=== PATIENT | female | born 1940 | race Caucasian/White ===

== ENCOUNTER 2017-05-06 13:01 | Outpatient (CLI) | payer MEDICARE, BC ==
--- NOTE | 2017-05-06 15:22 | RAD ---
PA AND LATERAL VIEWS OF CHEST: Date: 05/06/17 HISTORY: Dyspnea. FINDINGS: Comparison made with exam of 04/05/17. The heart size is enlarged. The aorta is tortuous. Chronic changes are again seen. No lobar consolid ation, pneumothorax, or pleural effusions are identified. There are degenerative changes in the spin e. IMPRESSION: No acute process. POS: [facility]
== END 2017-05-06 13:02 | disposition home or self-care (01) ==
LOC: RAD 13:01
PROVIDERS: ATTEND Internal Medicine Pulmonary Disease
DX: R06.00 Dyspnea, unspecified (principal)
CPT/HCPCS: 71020

== ENCOUNTER 2017-06-28 10:58 | Outpatient (CLI) | payer MEDICARE, BC | END 2017-06-28 10:59 | disposition home or self-care (01) | LOC: BICRAD 10:58 | PROVIDERS: ATTEND Internal Medicine Rheumatology | DX: M25.551 Pain in right hip (principal); M16.11 Unilateral primary osteoarthritis, right hip ==

== ENCOUNTER 2017-08-15 11:28 | Outpatient (CLI) | payer MEDICARE, OTHER ==
--- NOTE | 2017-08-15 13:20 | RAD ---
TWO VIEWS OF THE CHEST: COMPARISON: 05/06/17. HISTORY: Dyspnea. FINDINGS: Two views of the chest show an enlarged cardiomediastinal silhouette with atherosclerotic calcificati ons in the aorta. There is no evidence of consolidation, mass, or pleural effusion. Degenerative ch anges are seen in the spine. IMPRESSION: Cardiomegaly without evidence of acute cardiopulmonary disease. POS: [facility]
== END 2017-08-15 11:29 | disposition home or self-care (01) ==
LOC: RAD 11:28
PROVIDERS: ATTEND Internal Medicine Pulmonary Disease
DX: R06.00 Dyspnea, unspecified (principal); I51.7 Cardiomegaly
CPT/HCPCS: 71046

== ENCOUNTER 2017-09-14 11:18 | Outpatient (CLI) | payer MEDICARE, OTHER ==
--- NOTE | 2017-09-14 13:23 | RAD ---
ABDOMEN TWO VIEWS: HISTORY: R10.9 (abdominal pain). COMPARISON: None. FINDINGS: On the upright view, the hemidiaphragms are not well seen; therefore, free air evaluation is limited. No dilated air-filled loops of large or small bowel. Moderate stool burden throughout the ascending colon. There are phleboliths in the pelvis. Mild dextroscoliosis. IMPRESSION: 1. No acute intraabdominal abnormality. 2. Moderate stool burden in the ascending colon, suggesting constipation. POS: [facility]
== END 2017-09-14 11:19 | disposition home or self-care (01) ==
LOC: TBSIIMAG 11:18
PROVIDERS: ATTEND Psychiatry & Neurology Neurology
DX: R10.9 Unspecified abdominal pain (principal)
CPT/HCPCS: 74019

== ENCOUNTER 2018-12-14 13:00 | Outpatient (CLI) | payer MEDICARE, OTHER ==
[~2018-12-14 13:00] MED LIST: Gadobenate Dimeglumine 529 MG/1 ML (20ML VIAL) ONE
--- NOTE | 2018-12-14 14:20 | RAD ---
Exam: 4views of the lumbosacral spine HISTORY: Lumbar stenosis with neurogenic claudication COMPARISON: Lumbar spinal radiograph dated February 06, 2016 FINDINGS: There are five lumbar type vertebra. No acute fracture or subluxation. There is worsening disc degenerative disease at L3-4 and L4-5. There is a prominent Modic endplate de generative change at L3-4. There is slight degenerative dextroscoliosis at L3-4. There is slight retrolisthesis of L3 on L4 that appears slightly more prominent than on the prior exam. Mild compress ion abnormality at T12 is stable. Prominent vascular calcifications are again noted. IMPRESSION: 1. Moderate to severe worsening lumbar spondylosis
--- NOTE | 2018-12-14 14:45 | MRI ---
MR the lumbar spine without contrast INDICATION: Lumbar stenosis with claudication COMPARISON: MR the lumbar spine with and without dated February 14, 2017 TECHNIQUE: Multiplanar multisequence MR images were obtained of lumbar spine without IV contrast. The examination was ordered as a with and without study; however, the patient declined the post contrast imaging evaluation. FINDINGS: Bone marrow: Bone marrow signal intensity appears within normal limits. There is a stable chronic sup erior end plate compression abnormality of T12. Distal spinal cord and conus: Normal. The conus seen to terminate at L1. Visualized retroperitoneum and paraspinal soft tissues: Normal. Vertebral levels: L5-S1: There is a broad-based disc bulge with moderate facet joint degenerative changes inducing mode rate bilateral neural foraminal narrowing, left greater than right. This is stable to the prior exam.. L4-5: There is stable broad-based bulge with facet hypertrophy inducing stable moderate central canal narrowing with severe bilateral neural foraminal narrowing. The degree of neural foraminal narrowing bilaterally has progressed from the prior exam. L3-4: There is a broad-based disc bulge with ligamentum flavum hypertrophy and facet hypertrophy cristian cing stable moderate to severe central canal narrowing with mild right and severe left neural foraminal narrowing. This is stable to the prior exam. L2-3: There is a broad-based bulge with facet hypertrophy inducing mild central canal narrowing with mild bilateral neural foraminal narrowing. L1-L2: There is mild facet joint degenerative change but no appreciable central canal or neural earle inal narrowing. T12-L1: No appreciable central canal or neuroforaminal narrowing. IMPRESSION: 1. Worsening bilateral neural foraminal narrowing at L4-5. 2. Stable central canal narrowing seen at L2-3 through L4-5. There is moderate central canal narrowin g at L4-5 and moderate to severe central canal narrowing at L3-4. 3. Stable neural foraminal narrowing seen at L2-3, L3-4 and L5-S1.
== END 2018-12-14 13:01 | disposition home or self-care (01) ==
LOC: BICMRI 13:00
PROVIDERS: ATTEND Anesthesiology Pain Medicine
DX: M48.062 Spinal stenosis, lumbar region with neurogenic claudication (principal); M47.816 Spondylosis without myelopathy or radiculopathy, lumbar region; M48.07 Spinal stenosis, lumbosacral region
CPT/HCPCS: 72110; 72158; A9577

== ENCOUNTER 2019-03-26 09:32 | Outpatient (CLI) | payer MEDICARE, OTHER ==
[2019-03-26 13:23] LABS: #Basophils 0.1 thou/uL (0.0-0.2); #Eosinphils 0.2 thou/uL (0.0-0.7); #Lymphocytes 3.5 thou/uL (1.20-3.40); #Monocytes 1.1 thou/uL (0.11-0.59); #Neutrophils 7.6 thou/uL (1.40-6.50); %Basophils 0.8 % (0.0-1.0); %Eosinophils 1.8 % (0.0-10.0); %Lymphocytes 28.3 % (21.0-51.0); %Monocytes 8.7 % (0.0-10.0); %Neutrophils 60.5 % (42.0-75.0); Hemoglobin 11.8 g/dL (12.0-16.0); Mean Corpuscular HGB CONC 33.6 g/dL (32.0-36.0); Mean Corpuscular Hemoglobin 28.7 pg (27.0-31.0); Mean Corpuscular Volume 85.3 fL (78.0-98.0); Mean Platelet Volume 9.4 fL (7.4-10.4); Platelet Count 257 thou/uL (130-400); RBC Distribution Width 12.9 % (11.5-14.5); Red Blood Cell (RBC) Count 4.11 mill/uL (4.20-5.40); White Blood Cell (WBC) Count 12.5 thou/uL (4.8-10.8)
[2019-03-26 13:43] LABS: ALT (SGPT) 16 U/L (8-55); AST (SGOT) 18 U/L (5-34); Albumin 4.3 g/dL (3.4-4.8); Alkaline Phosphatase 165 U/L (40-150); Anion Gap 16 mmol/L (10-20); BUN (Urea Nitrogen) 53 mg/dL (9.8-20.1); Bilirubin, Total 0.4 mg/dL (0.2-1.2); Calc. Creatinine Clearance 0 mL/min (70-130); Calcium 10.3 mg/dL (7.8-10.44); Carbon Dioxide 28 mmol/L (23-31); Chloride 95 mmol/L (98-107); Estimated GFR-MDRD 26; Globulin 3.2 g/dL (2.4-3.5); Glucose 128 mg/dL (83-110); Potassium 4.7 mmol/L (3.5-5.1); Protein, Total 7.5 g/dL (6.0-8.3); Sodium 134 mmol/L (136-145)
== END 2019-03-26 09:33 | disposition home or self-care (01) ==
LOC: LABBT 09:32
PROVIDERS: ATTEND Internal Medicine Cardiovascular Disease
DX: Z01.812 Encounter for preprocedural laboratory examination (principal)
CPT/HCPCS: 80053; 85025

== ENCOUNTER 2019-03-28 05:53 | Day surgery (SDC) | payer MEDICARE, OTHER ==
[2019-03-26 12:18] VITALS: BMI 33.5
[2019-03-28] MEDS ORDERED: Lidocaine 1% (PF) 30 ML VIAL ONE (06:56)
[2019-03-28] MEDS ORDERED: Fentanyl 100 MCG/2 ML VIAL ONE (08:25)
[2019-03-28] MEDS ORDERED: Metoprolol Tartrate 5 MG/5 ML VIAL ONE ×3 (08:25→09:07)
[2019-03-28] MEDS ORDERED: Midazolam HCl 2 mg/2 ml Vial ONE (08:25)
[2019-03-28] MEDS ORDERED: Nitroglycerin 2% Ointment 1 INCH/1 GM Packet ONE (08:35)
[2019-03-28] MEDS ORDERED: Nitroglycerin 4.9 GM Bottle ONE (08:35)
[2019-03-28] MEDS ORDERED: Nitroglycerin 100MG/250ML BOT 250 ML ONE (09:07)
[2019-03-28] MEDS ORDERED: Iopamidol 370 76% 100 ML VIAL ONE (10:42)
--- NOTE | 2019-03-29 04:06 | DIS ---
DATE OF ADMISSION: 03/28/2019 DATE OF DISCHARGE: 03/28/2019 FINAL DIAGNOSES: 1. Coronary artery disease. 2. Cardiomyopathy. 3. Left bundle-branch block. HOSPITAL COURSE: Ms. Colbert underwent cardiac catheterization today. She is found to have diffusely diseased LAD in the distal segment. A very small vessel, less than 2 mm. Disease extends back to the origin of a very large first diagonal. Intervention would not be feasible or advisable on the patient. I do not think it is the source of her cardiomyopathy. By any means, as I was ready to discharge her, she informed that she had fallen a couple of weeks ago. She said she remembers falling and hitting the ground. Her thinks she may have hit her head though. She said she was "dizzy," before that, but she is dizzy all day. It is possible this is arrhythmia, but it is difficult to be certain. The patient wishes to be released home. She is going to see Dr. Gómez in the office for further evaluation, consideration for biventricular pacemaker defibrillator. The patient's QRS duration is 0.15. Patient should be treated medically from a coronary artery standpoint. The patient was hypertensive and tachycardic today. Therefore, we may need to increase her beta blockers as an outpatient, especially after the device is placed. Ejection fraction on the echocardiogram is 25% to 30%. I called it 40%, but it is an PALMA view which does not show the septum and there is very definite paradoxical septal motion due to the left bundle-branch block seen in the STEVAN views and also seen on echo. True ejection fraction is 25% to 30%. It was persistently low despite beta blockers and INDU inhibitors for over 3 months. Job ID: [id number]
== END 2019-03-28 13:44 | disposition home or self-care (01) ==
LOC: CCL 05:53
PROVIDERS: ATTEND Internal Medicine Cardiovascular Disease
PROC: 4A023N7 Measurement of Cardiac Sampling and Pressure, Left Heart, Percutaneous Approach (ICD-10-PCS; principal; 2019-03-28)
PROC: B2051ZZ Plain Radiography of Left Heart using Low Osmolar Contrast (ICD-10-PCS; 2019-03-28)
DX: I25.10 Atherosclerotic heart disease of native coronary artery without angina pectoris (principal); I11.0 Hypertensive heart disease with heart failure; I50.42 Chronic combined systolic (congestive) and diastolic (congestive) heart failure; E11.9 Type 2 diabetes mellitus without complications; E78.2 Mixed hyperlipidemia; I44.7 Left bundle-branch block, unspecified; E66.9 Obesity, unspecified; E78.00 Pure hypercholesterolemia, unspecified; Z68.33 Body mass index [BMI] 33.0-33.9, adult; Z88.0 Allergy status to penicillin; Z88.1 Allergy status to other antibiotic agents; Z88.2 Allergy status to sulfonamides; Z91.041 Radiographic dye allergy status; Z79.4 Long term (current) use of insulin; Z79.82 Long term (current) use of aspirin; Z79.899 Other long term (current) drug therapy
CPT/HCPCS: 36416; 76942; 93458; 99152; C1769; J1644; J2001; J2250; J3010; Q9967

== ENCOUNTER 2019-12-06 12:02 | Inpatient (IN) | payer MEDICARE, OTHER ==
[~2019-12-06 12:02] MED LIST changes: +Dextrose 50% Abboject 50 ML SYRINGE ONE; -Gadobenate Dimeglumine 529 MG/1 ML (20ML VIAL) ONE
[2019-12-06] MEDS ORDERED: Dextrose 50% Abboject 50 ML SYRINGE ONE (12:06)
--- NOTE | 2019-12-06 12:37 | RAD ---
PORTABLE SUPINE CHEST: Date: 12/06/2019 INDICATION: Pacemaker malfunction. COMPARISON: 08/15/2017. FINDINGS: Dual lead pacemaker device has been placed since the prior study with AICD leads noted overlying the right atrium and right ventricle. Mild cardiomegaly and mild vascular engorgement. No focal infiltrate or evidence of significant edema . IMPRESSION: Mild cardiomegaly with mild vascular engorgement. Pacemaker leads appear adequately positioned on por table exam. POS: [facility]
[2019-12-06 13:01] LABS: #Basophils 0.1 thou/uL (0.0-0.2); #Eosinphils 0.2 thou/uL (0.0-0.7); #Lymphocytes 2.8 thou/uL (1.20-3.40); #Monocytes 1.5 thou/uL (0.11-0.59); #Neutrophils 11.4 thou/uL (1.40-6.50); %Basophils 0.6 % (0.0-1.0); %Eosinophils 1.2 % (0.0-10.0); %Lymphocytes 17.7 % (21.0-51.0); %Monocytes 9.2 % (0.0-10.0); %Neutrophils 71.3 % (42.0-75.0); Hemoglobin 12.1 g/dL (12.0-16.0); Mean Corpuscular HGB CONC 30.6 g/dL (32.0-36.0); Mean Corpuscular Hemoglobin 26.8 pg (27.0-31.0); Mean Corpuscular Volume 87.4 fL (78.0-98.0); Mean Platelet Volume 9.3 fL (7.4-10.4); Platelet Count 268 thou/uL (130-400); RBC Distribution Width 12.7 % (11.5-14.5); Red Blood Cell (RBC) Count 4.52 mill/uL (4.20-5.40)
[2019-12-06] MEDS ORDERED: Acetaminophen 500 MG TAB ONE (13:15)
[2019-12-06 13:22] LABS: ALT (SGPT) 14 U/L (8-55); AST (SGOT) 24 U/L (5-34); Albumin 4.2 g/dL (3.4-4.8); Alkaline Phosphatase 168 U/L (40-110); Anion Gap 12 mmol/L (10-20); BUN (Urea Nitrogen) 29 mg/dL (9.8-20.1); Bilirubin, Total 0.6 mg/dL (0.2-1.2); Calc. Creatinine Clearance 0 mL/min (70-130); Calcium 9.6 mg/dL (7.8-10.44); Carbon Dioxide 27 mmol/L (23-31); Chloride 102 mmol/L (98-107); Estimated GFR-MDRD 37; Globulin 3.2 g/dL (2.4-3.5); Glucose 144 mg/dL (83-110); Lipase 31 U/L (8-78); Magnesium 1.9 mg/dL (1.6-2.6); Potassium 3.9 mmol/L (3.5-5.1); Protein, Total 7.4 g/dL (6.0-8.3); Sodium 137 mmol/L (136-145)
[2019-12-06 13:44] LABS: CKMB 3.3 ng/mL (0-6.6)
[2019-12-06 13:59] LABS: Bilirubin Negative (Negative); Blood, Urine Negative (Negative); Clarity Clear (Clear); Glucose, Urine (Dipstick) 70 mg/dL (Negative); Leukocyte Negative Leu/uL (Negative); Nitrite Negative (Negative); Protein, Urine (Dipstick) Negative (Neg-Trace); Urobilinogen Normal mg/dL (Less than 2)
[2019-12-06] MEDS ORDERED: Acetaminophen 325 MG TAB PO PRN (15:05)
[2019-12-06] MEDS ORDERED: Senokot S 8.6-50 MG TAB PO PRN (15:05)
[2019-12-06] MEDS ORDERED: Dextrose 5% in Water 1,000 ML IV PRN (15:09)
[2019-12-06] MEDS ORDERED: HumaLOG 300 UNITS/3 ML VIAL SC PRN (15:09)
[2019-12-06] MEDS ORDERED: Dextrose 50% Abboject 50 ML SYRINGE SLOW IVP PRN (15:09)
[2019-12-06] MEDS ORDERED: Non-Formulary Item 1 EACH (Adalimumab [Humira Pen] 40 MG) SQ SCH (15:15)
--- NOTE | 2019-12-06 17:16 | HP ---
CHIEF COMPLAINT: Hypoglycemia. HISTORY OF PRESENT ILLNESS: An 79-year-old female with a history of type 2 diabetes mellitus, hypertension, coronary artery disease, cardiomyopathy, and left bundle-branch block, presented with hypoglycemic episodes. 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 She was found to be unresponsive and when EMS checked, her blood glucose was less than 35. It appears she had some myoclonic jerks. She was brought in to the [facility]. When they were about to intubate her, it appears that she became alert. Her blood glucose improved to 178 after intervention. She will be admitted for further management. The patient is not able to give me more detailed information. Her spouse is not at bedside. So, it is very unclear how much insulin she took. She is on lantus and victoza. She is also on prednisone, but she is not taking when I asked. PAST MEDICAL HISTORY: She had a pacemaker placement last year for sinus arrhythmia. REVIEW OF SYSTEMS: Complete review of systems not obtainable directly from the patient. ALLERGIES: SHE IS ALLERGIC TO IODINE, PENICILLIN, AND SULFA. PAST MEDICAL HISTORY: 1. Coronary artery disease. 2. Cardiomyopathy. 3. Left bundle-branch block. 4. Type 2 diabetes mellitus. 5. Hypertension. 6. Dementia. 7. GERD. 8. Restless legs syndrome. 9. History of thrombocytopenia. MEDICATIONS: She is on several home medications and I am not sure all are corrected, it has to be updated, aspirin 81 mg daily, Humira 40 mg q.14 days, spironolactone 25 mg daily, meclizine 25 mg q.4 p.r.n., Pepcid 20 mg daily, Bystolic 20 mg twice a day, torsemide 20 mg daily, Norvasc 1 tablet daily, clonidine 0.1 mg daily, ropinirole 6 mg at bedtime, prednisone 20 mg q.6 hours. Again, this medication list has to be updated. PHYSICAL EXAMINATION: VITAL SIGNS: She is afebrile, normotensive in the monitor. Her mentation seems to be improving, but still she is quite groggy and somnolent. CARDIOVASCULAR: Regular rate and rhythm without murmurs, rubs, or gallops. LUNGS: Clear to auscultation bilaterally without wheezing, rales, or rhonchi. ABDOMEN: Soft, nontender, and nondistended. Good bowel sounds. EXTREMITIES: Did not appreciate any pitting edema. Neurologically no focal deficits and moving her extremities spontaneously. LABORATORY DATA: Significant for creatinine 1.36 and blood glucose lately 183. Troponin is 0.235. Alkaline phosphatase is 168. Lipase 31. CBC with WBC of 16 and platelets 268. UA shows glucosuria. A chest x-ray did not show any active infiltrate, pacemaker lead adequately positioned. The EKG did not show any ischemic changes. IMPRESSION AND PLAN: An 79-year-old female with multiple medical problems, presenting with the following. 1. Hypoglycemia, due to excessive insulin injection versus less PO intake. 2. Possible hypoglycemia induced myoclonic jerks without any underlying history of seizures. 3. Metabolic encephalopathy secondary to hypoglycemia. 4. Transient hypoxia that is resolved. 5. Leukocytosis due to stress demargination. 6. Elevated troponin in the context of creatinine elevation. 7. Elevated alkaline phosphatase. 8. Acute kidney injury with creatinine level of 1.39 and baseline creatinine 0.9 in September 2019. Currently, her blood glucose is improving. Mentation is getting better. We will monitor and I am going to start her on a diabetic diet when she is more alert and just use the sliding scale insulin if needed and hold all her home diabetic medications including metformin, Liraglutide, and insulin. Hold meclizine, Naprosyn, and Dyazide given her acute kidney injury. We will give her some IV fluids. Repeat a chemistry panel tomorrow. If the creatinine improved, then probably related to dehydration. If not, we need further workup. Abnormal troponin. Patient did not have any ischemic symptoms or clinical history to suggest cardiac ischemia at this point. Serial troponin and if it trends up, further workup as needed. Status post pacemaker placement. Follow the clinical course. DVT prophylaxis with heparin b.i.d. She will be full code. Job ID: [id number] MTDD
[2019-12-06 17:19] LABS: CKMB 8.7 ng/mL (0-6.6)
[2019-12-06] MEDS ORDERED: Nebivolol HCl 5 MG TAB PO SCH (21:00)
[2019-12-06] MEDS ORDERED: Heparin 5,000 UNITS/ML VIAL SC SCH (21:00)
[2019-12-06] MEDS ORDERED: Triamterene/Hydrochlorothiazide 37.5 mg/25 mg Tablet PO SCH (21:00)
[2019-12-06] MEDS: rOPINIRole HCl 2 MG TAB PO SCH (21:45)
[2019-12-06] MEDS ORDERED: Melatonin 3 MG TAB PO PRN (21:47)
[2019-12-06 22:24] LABS: CKMB 10.2 ng/mL (0-6.6)
[2019-12-06 23:10] VITALS: BMI 35.2
[2019-12-06 23:14] LABS: Lactic Acid 1.7 mmol/L (0.5-2.2)
[2019-12-06 23:29] LABS: Magnesium 1.9 mg/dL (1.6-2.6)
[2019-12-07] MEDS: NS 0.9% w/ 20 MEQ KCL 1,000 ML/1,000 ML BAG IV SCH ×3 (00:44→17:50)
[2019-12-07 03:31] LABS: Critical Call Chem Troponin I RESULT DECREASING
[2019-12-07 03:51] LABS: CKMB 8.9 ng/mL (0-6.6); Critical Call CKMB RESULT DECREASING
[2019-12-07 04:40] LABS: #Basophils 0.1 thou/uL (0.0-0.2); #Eosinphils 0.1 thou/uL (0.0-0.7); #Lymphocytes 3.3 thou/uL (1.20-3.40); #Monocytes 1.4 thou/uL (0.11-0.59); #Neutrophils 8.2 thou/uL (1.40-6.50); %Basophils 0.6 % (0.0-1.0); %Eosinophils 0.8 % (0.0-10.0); %Monocytes 10.5 % (0.0-10.0); %Neutrophils 63.1 % (42.0-75.0); Hemoglobin 11.2 g/dL (12.0-16.0); Mean Corpuscular HGB CONC 31.4 g/dL (32.0-36.0); Mean Corpuscular Hemoglobin 27.6 pg (27.0-31.0); Mean Corpuscular Volume 87.8 fL (78.0-98.0); Platelet Count 217 thou/uL (130-400); RBC Distribution Width 12.6 % (11.5-14.5); Red Blood Cell (RBC) Count 4.06 mill/uL (4.20-5.40)
[2019-12-07 04:42] LABS: Hemoglobin A1c 6.9 % (4.0-6.0)
--- NOTE | 2019-12-07 08:17 | CON ---
DATE OF CONSULTATION: 12/07/2019 REASON FOR CONSULTATION: Non-ST elevation myocardial infarction. HISTORY OF PRESENT ILLNESS: Ms. Renetta Colbert is a delightful 79-year-old woman with diabetes mellitus and history of congestive heart failure, previous biventricular defibrillator, and single-vessel coronary artery disease. The patient was doing well yesterday. In fact, earlier her blood sugar was on the somewhat elevated side. When she became hypoglycemic and unresponsive, she was brought here to the emergency room, found to have an increased troponin level. She has been brought in for observation and further evaluation. The patient otherwise has been doing very well. No chest pain or pressure, been doing extremely well from a cardiac standpoint. In fact, she has planned on having back surgery in December. The patient has a history of biventricular pacemaker for cardiomyopathy, left bundle-branch block. MEDICATIONS: At home were listed as; 1. Amlodipine 5 mg twice a day. 2. Metformin. 3. Victoza. 4. Torsemide. 5. Spironolactone. 6. Carvedilol. 7. Atorvastatin. 8. Olmesartan. ALLERGIES: TO IODINE AND PENICILLIN. REVIEW OF SYSTEMS: CONSTITUTIONAL: No significant weight gain or loss. VISION: No changes. HEARING: No changes. PULMONARY: No cough or wheezing. GASTROINTESTINAL: No nausea, vomiting, or diarrhea. SKIN: No rashes. NEUROLOGIC: No unilateral weakness or numbness. PSYCHIATRIC: No unusual depression or anxiety. PHYSICAL EXAMINATION: GENERAL: This is a pleasant elderly woman, she feels fine now, no other complaints. VITAL SIGNS: Blood pressure is elevated at 160/70 and pulse 80. LUNGS: Clear. CARDIAC: Normal S1 and normal S2. ABDOMEN: Soft and nontender. EXTREMITIES: Warm and dry. No clubbing, cyanosis, or edema. PERTINENT LABORATORY: Troponin peak of 2.597. Reviewed the cardiac catheterization films. She does have a long LAD lesion and an area that extends back to a very large first diagonal branch, will be a very poor candidate for intervention. There is also some calcium in this area. EKG reveals an atrial sensed biventricular paced rhythm. ASSESSMENT: 1. Non-ST elevation myocardial infarction due to demand ischemia. 2. Underlying single-vessel coronary artery disease. 3. Episode of severe hypoglycemia as outlined in the chart with extremely low blood sugar determination. 4. Status post biventricular pacemaker defibrillator. 5. Iodine allergy. PLAN: 1. Need to reconcile medication, the home listed medicines in the chart was carvedilol, but she is here on Bystolic and there is a question, which medicine she is taking. 2. Need to resume Olmesartan. 3. Continue aspirin. 4. Echocardiogram pending. The patient otherwise is doing well. She should be able to be released home by tomorrow morning. ADDENDUM: Ms. Colbert was taking carvedilol as an outpatient. We will stop the Bystolic and resume carvedilol. She is not on olmesartan due to history of renal insufficiency with INDU inhibitors and angiotensin receptor blockers. Job ID: [id number]
[2019-12-07 08:42] LABS: Critical Call Chem Troponin I RESULT DECREASING
[2019-12-07] MEDS: Carvedilol 25 MG TAB PO SCH ×2 (08:56→17:50)
[2019-12-07] MEDS: Torsemide 20 MG TAB PO SCH (08:56)
[2019-12-07] MEDS: Amlodipine 5 MG TAB PO SCH (08:56)
[2019-12-07] MEDS: rOPINIRole HCl 2 MG TAB PO SCH ×3 (08:56→20:04)
[2019-12-07] MEDS: cloNIDine 0.1 MG TAB PO SCH (08:56)
[2019-12-07] MEDS: Aspirin 81 mg Enteric Coated Tablet PO SCH (08:56)
[2019-12-07] MEDS: Leflunomide 10 mg Tablet PO SCH (08:57)
[2019-12-07] MEDS: Enoxaparin Sodium 80 MG/0.8 ML SYRINGE SC SCH ×2 (08:58→20:04)
[2019-12-07 08:59] LABS: Anion Gap 16 mmol/L (10-20); BUN (Urea Nitrogen) 20 mg/dL (9.8-20.1); Calc. Creatinine Clearance 65 mL/min (70-130); Carbon Dioxide 21 mmol/L (23-31); Cardiac Risk 3.1 (Less than 4.5); Chloride 105 mmol/L (98-107); Cholesterol 109 mg/dl (< 200 Desired); Estimated GFR-MDRD 57; Glucose 118 mg/dL (83-110); HDL Cholesterol 35 mg/dL (>60 Neg Risk); LDL Cholesterol, Calculated 50 mg/dL; Potassium 4.7 mmol/L (3.5-5.1); Sodium 137 mmol/L (136-145); Triglycerides 122 mg/dL (Less than 150)
[2019-12-07] MEDS ORDERED: Metolazone 2.5 MG TAB PO SCH (09:00)
[2019-12-07 09:13] LABS: CKMB 7.4 ng/mL (0-6.6); Critical Call CKMB RESULT DECREASING
--- NOTE | 2019-12-07 13:25 | PDOC.HOSPP ---
- Subjective Encounter Date: 12/07/19 Encounter Time: 10:40 Subjective: pt doing well, spouse at bedside. she denies any CP - backpain or epigastric pain, except had 2 runs of loose stool, echo to be done at bedside. d/w Dr Demarco. - Objective Vital Signs & Weight: Vital Signs (12 hours) Temp Pulse Resp BP Pulse Ox 12/07/19 11:25 97.9 F 77 15 163/68 H 97 12/07/19 08:56 81 12/07/19 08:00 98.9 F 73 18 142/64 H 94 L 12/07/19 03:19 98.3 F 81 16 160/70 H 95 Weight Weight 192 lb 8 oz I&O: 12/06/19 12/07/19 12/08/19 06:59 06:59 06:59 Intake Total 655 Balance 655 Result Diagrams: 12/07/19 04:20 12/07/19 06:43 Additional Labs: Accuchecks 12/07/19 12/07/19 12/07/19 12:36 08:14 04:29 POC Glucose 165 H 218 H 109 12/07/19 12/07/19 12/06/19 00:43 00:08 20:48 POC Glucose 158 H 158 H 199 H 12/06/19 12/06/19 12/06/19 18:04 16:06 14:03 POC Glucose 173 H 143 H 183 H 12/06/19 12/06/19 12/06/19 13:35 12:52 12:35 POC Glucose 166 H 147 H 178 H Hospitalist ROS - Medication Medications: Active Medications Generic Name Dose Route Start Last Admin Trade Name Freq PRN Reason Stop Dose Admin Acetaminophen 650 mg 12/06/19 15:05 12/07/19 01:33 Tylenol PO 650 mg Q4H PRN Administration Headache/Fever/Mild Pain (1-3) Amlodipine Besylate 5 mg 12/07/19 09:00 12/07/19 08:56 Norvasc PO 5 mg DAILY OMAR Administration Aspirin 81 mg 12/07/19 09:00 12/07/19 08:56 Ecotrin PO 81 mg DAILY OMAR Administration Carvedilol 50 mg 12/07/19 08:00 12/07/19 08:56 Coreg PO 50 mg BID- OMAR Administration Cholecalciferol 4,000 units 12/07/19 09:00 12/07/19 08:54 Vitamin D3 PO 4,000 units DAILY OMAR Administration Clonidine 0.1 mg 12/07/19 09:00 12/07/19 08:56 Catapres PO 0.1 mg DAILY OMAR Administration Enoxaparin Sodium 80 mg 12/07/19 09:00 12/07/19 08:58 Lovenox SC 80 mg 0900,2100 OMAR Administration Potassium Chloride/Sodium Chloride 1,000 ml in 1,000 mls @ 75 mls/hr 12/06/19 15:15 12/07/19 08:56 Ns 0.9% W/ 20 Meq Kcl IV 1,000 mls .[id number] OMAR Administration Leflunomide 10 mg 12/07/19 09:00 12/07/19 08:57 Arava PO 10 mg DAILY OMAR Administration Pantoprazole Sodium 40 mg 12/07/19 09:00 12/07/19 08:56 Protonix PO 40 mg DAILY OMAR Administration Ropinirole HCl 2 mg 12/06/19 21:00 12/07/19 08:56 Requip PO 2 mg TID OMAR Administration Sodium Chloride 10 ml 12/07/19 09:00 12/07/19 08:57 Flush - Normal Saline IVF Not Given Q12HR OMAR Torsemide 20 mg 12/07/19 09:00 12/07/19 08:56 Demadex PO 20 mg DAILY OMAR Administration - Exam General Appearance: NAD, awake alert Eye: PERRL ENT: normocephalic atraumatic Neck: supple Heart: RRR, normal peripheral pulses Respiratory: CTAB, normal chest expansion Gastrointestinal: soft, normal bowel sounds Neurological: no focal deficits Hosp A/P - Plan Hypoglycemia Hypoglycemia induced syncope vs..myoclonic jerks Excessive insulin induced hypoglycemia --no further episodes here --her a1c only 6.9. --pt does not need to be both on victoza and lantus 65 units --i held these insulins and her BG sugar still < 200. --so make sure she is not going home w.. lantus 65 units. --started her on very low dose humalog, which should be enough, in my opinion. --monitor her BG next 24 to 48hrs and titrate the bid insulin dose and close fw with PCP. abn trop -metabolic mismatch - hypoglycemia induced? --appreciate cariology input --no aggressive intervention --cardiac meds reviewed -- coreg -seems hx of adverse oliver/kidney dysfn with aCEI/ARBS Echo pending. --monitor her BG next 24 to 48hrs and titrate the bid insulin dose and close fw with PCP. --home in 1 to 2 days.
[2019-12-07] MEDS ORDERED: Diphenoxylate HCl/Atropine Tablet PO PRN (14:45)
[2019-12-07] MEDS: HumuLIN 70/30 (300 UNITS/3 ML VIAL) SC SCH (20:05)
[2019-12-08 04:10] LABS: #Basophils 0.1 thou/uL (0.0-0.2); #Eosinphils 0.2 thou/uL (0.0-0.7); #Monocytes 1.2 thou/uL (0.11-0.59); #Neutrophils 6.3 thou/uL (1.40-6.50); %Basophils 0.9 % (0.0-1.0); %Eosinophils 1.8 % (0.0-10.0); %Lymphocytes 33.9 % (21.0-51.0); %Monocytes 10.3 % (0.0-10.0); %Neutrophils 53.1 % (42.0-75.0); Hemoglobin 11.3 g/dL (12.0-16.0); Mean Corpuscular HGB CONC 30.4 g/dL (32.0-36.0); Mean Corpuscular Hemoglobin 26.8 pg (27.0-31.0); Mean Corpuscular Volume 88.3 fL (78.0-98.0); Mean Platelet Volume 9.3 fL (7.4-10.4); Platelet Count 210 thou/uL (130-400); RBC Distribution Width 12.6 % (11.5-14.5); Red Blood Cell (RBC) Count 4.21 mill/uL (4.20-5.40); White Blood Cell (WBC) Count 11.8 thou/uL (4.8-10.8)
[2019-12-08 04:32] LABS: Anion Gap 14 mmol/L (10-20); BUN (Urea Nitrogen) 12 mg/dL (9.8-20.1); Calc. Creatinine Clearance 72 mL/min (70-130); Calcium 8.9 mg/dL (7.8-10.44); Carbon Dioxide 22 mmol/L (23-31); Chloride 104 mmol/L (98-107); Estimated GFR-MDRD 64; Glucose 107 mg/dL (83-110); Sodium 136 mmol/L (136-145)
[2019-12-08] MEDS: NS 0.9% w/ 20 MEQ KCL 1,000 ML/1,000 ML BAG IV SCH (07:31)
[2019-12-08] MEDS: Enoxaparin Sodium 80 MG/0.8 ML SYRINGE SC SCH (08:01)
[2019-12-08] MEDS: Aspirin 81 mg Enteric Coated Tablet PO SCH (08:02)
[2019-12-08] MEDS: Torsemide 20 MG TAB PO SCH (08:02)
[2019-12-08] MEDS: rOPINIRole HCl 2 MG TAB PO SCH (08:02)
[2019-12-08] MEDS: Amlodipine 5 MG TAB PO SCH (08:02)
[2019-12-08] MEDS: HumuLIN 70/30 (300 UNITS/3 ML VIAL) SC SCH (08:03)
[2019-12-08] MEDS: cloNIDine 0.1 MG TAB PO SCH (08:03)
[2019-12-08] MEDS: Leflunomide 10 mg Tablet PO SCH (08:03)
[2019-12-08] MEDS: Carvedilol 25 MG TAB PO SCH (08:07)
[2019-12-08 11:04] VITALS: BP 164/71; TEMP 98.1
--- NOTE | 2019-12-08 20:19 | DIS ---
DATE OF ADMISSION: 12/07/2019 DATE OF DISCHARGE: 12/08/2019 DISCHARGE DISPOSITION AND FOLLOWUP: The patient was discharged home with her . The patient was seen and examined on the day of discharge. Denies any new complaints. INPATIENT CONSULT: Cardiology. CLINICAL COURSE: The patient is a very pleasant 79-year-old female, who has history of type 2 diabetes, hypertension, coronary artery disease, cardiomyopathy, and left bundle branch block, who presented with hypoglycemic episodes. The patient has recently switched her insulin times and she was found to be unresponsive and her blood sugar was less than 35. Immediately prior to intubation attempt, she became more alert and her blood sugar improved to 178 after intervention. Cardiology was consulted due to an increased troponin level. After medication changes, they signed off and felt that it was a non-STEMI related to demand ischemia. No other interventions were required. During hospital course, the patient's blood pressure stayed stable and her insulins were changed so she is now taking Novolin 70/30 5 units twice a day , which she tolerated well and did not have any further hypoglycemic episodes. FINAL DIAGNOSES: Hypoglycemia and abnormal troponin level. DISCHARGE MEDICATIONS: New medication, Humulin 70/30, 5 units subcu b.i.d. The patient is to resume, 1. Amlodipine 5 mg p.o. b.i.d. 2. Aspirin 81 mg p.o. daily. 3. Atorvastatin 20 mg p.o. daily. 4. Carvedilol 50 mg p.o. b.i.d. 5. Celexa 20 mg p.o. daily. 6. Clonidine 0.2 mg p.o. t.i.d. 7. Gabapentin 300 mg p.o. t.i.d. 8. Metformin 500 mg p.o. b.i.d. 9. Benicar 20/12.5 mg p.o. daily. 10. Omeprazole 20 mg p.o. daily. 11. Ropinirole ER 6 mg p.o. daily. 12. Spironolactone 12.5 mg p.o. daily. 13. Torsemide 20 mg p.o. daily. DISCHARGE INSTRUCTIONS: The patient was extensively educated over how to properly check blood sugars and how to take her insulin. She was also encouraged to follow up with her physician this week, where she states she has an appointment with him and her language therapist on Tuesday. TIME SPENT: Total time coordinating the discharge of this patient was 25 minutes[address] Discuss[address] patient with Dr. Lambret. Job ID: [id number] MTDD
--- NOTE | 2019-12-11 05:03 | PQF ---
[employer] AKIN Gray RAJPEDROEILEEN [id number] [address] [place] [address] [id number] CLINICAL DOCUMENTATION CLARIFICATION FORM: POST DISCHARGE Addendum to original discharge summary date: ____ Late entry note date: __ DATE: 12/11/19 ATTN: Swapnil Ramirez Please exercise your independent, professional judgment in responding to the clarification form. Clinical indicators are provided on the bottom of this form for your review Can you please further clarify the etiology of NSTEMI? Please check appropriate box(s): [x ] NSTEMI related to demand ischemia 2/2 Hypoglycemia [ ] NSTEMI related to demand ischemia 2/2 Other etiology, please specify _ [ ] NSTEMI related to demand ischemia of unknown etiology [ ] Other diagnosis please specify [ ] Unable to determine In addition, please specify: Present on Admission (POA): [ x ] Yes [ ] No [ ] Unable to determine CLINICAL INDICATORS - SIGNS / SYMPTOMS / LABS H and P pg.1- Presented with hypoglycemic episodes H and P pg.2- elevated troponin in the context of of creatinine elevation Consult pg.2- Non ST elevation myocardial infarction due to demand ischemia DS pg.1- Hypoglycemia and abnormal troponin level Laboratory -0.235H, 1.608H, 2.597H, 196.9H, 1.535H Labs Glucose: 12/05=less than 35 RISKS: Hypertension-H and P pg.1 DM- Consult pg.2 CHF- Consult pg.1 CAD- H and P pg.1 Cardiomyopathy- Consult pg.1 79 years old female-H and P pg.1 LBBB-H and P pg.1 BAY-H and P pg.1 TREATMENTS: Chest Xray 12/[address] Demarco 12/06 Echocardiogram 12/06 Troponin Monitoring- Laboratory Carvedilol 50mg PO- MAR Aspirin 81mg po- MAR IV Fluids- MAR (This form is maintained as a part of the permanent medical record) 2014 [employer], [employer]. All Rights Reserved [email or web address]
--- NOTE | 2019-12-14 23:25 | EKG ---
Test Reason : STAT Blood Pressure : / mmHG Vent. Rate : 073 BPM Atrial Rate : 073 BPM P-R Int : 136 ms QRS Dur : 136 ms QT Int : 462 ms P-R-T Axes : 067 -51 118 degrees QTc Int : 508 ms Electronic ventricular pacemaker When compared with ECG of 06-DEC-2019 12:19, (Unconfirmed) Vent. rate has decreased BY 20 BPM Confirmed by Fuad BENJAMIN ([id number]) on 12/14/2019 11:24:35 PM Referred By: ANDRÉS Confirmed By:Fuad BENJAMIN
== END 2019-12-08 14:03 | disposition home or self-care (01) | DRG 637 ==
LOC: ERS 12:02 → 2NO 14:57 → OBSVTOIN 12-07 10:51
PROVIDERS: ADMIT Internal Medicine; ATTEND Internal Medicine
DX: E11.649 Type 2 diabetes mellitus with hypoglycemia without coma (principal); G93.41 Metabolic encephalopathy; I21.A1 Myocardial infarction type 2; I42.9 Cardiomyopathy, unspecified; N17.9 Acute kidney failure, unspecified; F03.90 Unspecified dementia, unspecified severity, without behavioral disturbance, psychotic disturbance, mood disturbance, and anxiety; K21.9 Gastro-esophageal reflux disease without esophagitis; G25.81 Restless legs syndrome; D72.829 Elevated white blood cell count, unspecified; R09.02 Hypoxemia; I50.9 Heart failure, unspecified; I11.0 Hypertensive heart disease with heart failure; I25.10 Atherosclerotic heart disease of native coronary artery without angina pectoris; Z95.0 Presence of cardiac pacemaker; Z88.0 Allergy status to penicillin; Z91.041 Radiographic dye allergy status; Z88.2 Allergy status to sulfonamides; Z79.84 Long term (current) use of oral hypoglycemic drugs; Z79.4 Long term (current) use of insulin; Z79.899 Other long term (current) drug therapy
CPT/HCPCS: 36415; 36416; 71045; 80048; 80053; 80061; 81003; 82550; 82553; 83036; 83605; 83690; 83735; 84443; 84484; 85025; 87040; 87086; 93005; 93010; 93306; 96374; J1644; J1650; J1815; J3480

== ENCOUNTER 2020-02-18 07:27 | Outpatient (CLI) | payer MEDICARE, OTHER ==
[2020-02-18 14:04] LABS: Hemoglobin 11.3 g/dL (12.0-16.0); Mean Corpuscular HGB CONC 30.4 g/dL (32.0-36.0); Mean Corpuscular Hemoglobin 25.9 pg (27.0-31.0); Mean Corpuscular Volume 85.1 fL (78.0-98.0); Mean Platelet Volume 11.7 fL (7.4-10.4); Platelet Count 210 thou/uL (130-400); RBC Distribution Width 13.4 % (11.5-14.5); Red Blood Cell (RBC) Count 4.35 mill/uL (4.20-5.40); White Blood Cell (WBC) Count 10.9 thou/uL (4.8-10.8)
[2020-02-18 14:16] LABS: Anion Gap 15 mmol/L (10-20); BUN (Urea Nitrogen) 23 mg/dL (9.8-20.1); Calc. Creatinine Clearance 0 mL/min (70-130); Calcium 9.1 mg/dL (7.8-10.44); Carbon Dioxide 25 mmol/L (23-31); Chloride 100 mmol/L (98-107); Estimated GFR-MDRD 42; Glucose 311 mg/dL (83-110); Potassium 4.9 mmol/L (3.5-5.1); Sodium 135 mmol/L (136-145)
[2020-02-19 14:15] LABS: SARS-CoV-2 MS2 Positive; SARS-CoV-2 N Gene Negative; SARS-CoV-2 S Gene Negative; SARS-CoV-2 by NAA Not Detected (NotDetected); SARS-CoV-2 orf1ab Negative
== END 2020-02-18 07:28 | disposition home or self-care (01) ==
LOC: LABBT 07:27
PROVIDERS: ATTEND Neurological Surgery
DX: Z01.812 Encounter for preprocedural laboratory examination (principal); Z11.59 Encounter for screening for other viral diseases; M54.16 Radiculopathy, lumbar region
CPT/HCPCS: 80048; 85027; U0003; 87635

== ENCOUNTER 2020-08-04 07:28 | Outpatient (CLI) | payer MEDICARE, BC ==
--- NOTE | 2020-08-04 08:56 | CT ---
CT of thelumbar spine without contrast: 08/04/2020 COMPARISON:None available HISTORY:Chronic back pain with right lower extremity radiculopathy, multiple prior surgeries TECHNIQUE: Serial axial CT imaging at3 mm intervals from thelower thoracic spine through the mid sacr um without contrast. Coronal and sagittal reformatted imaging obtained. Findings:Evaluation for central canal and/or neural foraminal stenosis is limited on noncontrast enha nced CT. There is scattered atherosclerotic calcification of the abdominal aorta and its branches. The imaged retroperitoneal structures demonstrate no acute findings. There is a prominent Schmorl's node versus remote fracture involving the superior endplate of the T12 vertebral body, similar when compared to prior lumbar spine MRI performed 12/14/2018. T12-L1: Mild bilateral facet hypertrophy. There is no osseous cause of significant central canal or n eural foraminal stenosis. Anterior osteophyte formation noted on the right. L1-2: There is bilateral facet hypertrophy and there is right lateral osteophyte formation. There is no osseous cause of significant central canal or neural foraminal stenosis. L2-3: There is bilateral facet hypertrophy and hypertrophy of the ligamentum flavum. Disc bulge is no vasile. Vacuum disc formation present. Bilateral neural foraminal stenosis is suspected, moderate in severity, left greater than right. Mild/moderate central canal stenosis suspected. L3-4: Prominent bilateral facet hypertrophy with mild/moderate right neural foraminal stenosis and mo derate/severe left neural foraminal stenosis. There is prominent degenerative endplate change. Vacuum disc formation noted. Disc osteophyte complex present. Probable moderate central canal stenosi s. The patient is status post right hemilaminectomy. L4-5: There is a right-sided L4 and L5 pedicle screw with a vertically oriented interlocking donald. The re is bilateral facet hypertrophy with severe bilateral neural foraminal stenosis. There is disc space narrowing with degenerative endplate change, posterior disc osteophyte complex, and vacuum disc formation. Moderate/severe central canal stenosis noted. The patient appears status post right hemilaminectomy. L5-S1: Bilateral facet hypertrophy noted. There is moderate/severe bilateral neural foraminal stenosi s. Vacuum disc formation noted with mild disc bulge and probable mild central canal stenosis. No worrisome lytic or blastic bone lesion. No acute fracture or evidence of dislocation. There is prominent left lateral osteophyte formation at L3-4 and right lateral osteophyte formation a t L4-5. 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 Evaluation for c entral canal and/or neural foraminal stenosis may be better performed with CT myelogram if clinically warranted.
== END 2020-08-04 07:29 | disposition home or self-care (01) ==
LOC: BICCT 07:28
PROVIDERS: ATTEND Neurological Surgery
DX: M47.26 Other spondylosis with radiculopathy, lumbar region (principal); M48.061 Spinal stenosis, lumbar region without neurogenic claudication; Z98.890 Other specified postprocedural states
CPT/HCPCS: 72131

== ENCOUNTER 2020-09-18 13:08 | Outpatient (CLI) | payer MEDICARE, BC | END 2020-09-18 13:09 | disposition home or self-care (01) | LOC: MRI 13:08 | PROVIDERS: ATTEND Neurological Surgery | DX: M51.16 Intervertebral disc disorders with radiculopathy, lumbar region (principal); M48.061 Spinal stenosis, lumbar region without neurogenic claudication | CPT/HCPCS: 72158; 82565 ==

== ENCOUNTER 2020-11-17 09:15 | Outpatient (CLI) | payer MEDICARE, BC ==
[2020-11-17 12:10] LABS: Hemoglobin 10.2 g/dL (12.0-15.5); Mean Corpuscular Hemoglobin 24.6 pg (27.0-33.0); Mean Corpuscular Volume 79.5 fl (81.6-98.3); Mean Platelet Volume 11.6 fl (7.4-10.4); Platelet Count 269 10x3/uL (150-450); RBC Distribution Width 17.2 % (11.5-14.5); Red Blood Cell (RBC) Count 4.14 10x6/uL (3.90-5.03); White Blood Cell (WBC) Count 11.9 10x3/uL (3.5-10.5)
[2020-11-17 12:20] LABS: Anion Gap 17 mmol/L (10-20); BUN (Urea Nitrogen) 28 mg/dL (9.8-20.1); Calc. Creatinine Clearance 0 mL/min (70-130); Calcium 9.1 mg/dL (7.8-10.44); Carbon Dioxide 24 mmol/L (23-31); Chloride 101 mmol/L (98-107); Glucose 107 mg/dL (83-110); Potassium 4.8 mmol/L (3.5-5.1); Sodium 137 mmol/L (136-145)
[2020-11-18 02:13] LABS: SARS-CoV-2 PCR by NAA Not Detected (NotDetected)
== END 2020-11-17 09:16 | disposition home or self-care (01) ==
LOC: LABBT 09:15
PROVIDERS: ATTEND Neurological Surgery
DX: Z01.812 Encounter for preprocedural laboratory examination (principal); M54.16 Radiculopathy, lumbar region; Z20.822 Contact with and (suspected) exposure to COVID-19
CPT/HCPCS: 80048; 85027; U0003; U0005; 87635

== ENCOUNTER 2020-11-21 06:52 | Day surgery (SDC) | payer MEDICARE, BC ==
[2020-11-20 10:34] VITALS: BMI 32.0
[2020-11-21] MEDS ORDERED: Levofloxacin 500 mg/D5W 100 ml Premix Bag ONE (09:05)
[2020-11-21] MEDS ORDERED: Clindamycin/D5W 900 mg/50 ml Premix Bag ONE (09:05)
[2020-11-21] MEDS ORDERED: Bupivacaine PF 0.5% 30 ML VIAL ONE (09:28)
[2020-11-21] MEDS ORDERED: Thrombin 5000 UNITS/5 ML VIAL ONE (09:28)
[2020-11-21] MEDS ORDERED: EPINEPHrine 1 MG/ML AMP ONE (09:28)
[2020-11-21] MEDS ORDERED: Midazolam HCl 2 mg/2 ml Vial ONE (09:42)
[2020-11-21] MEDS ORDERED: Ketamine 50 MG/ML (10ML VIAL) ONE (09:42)
[2020-11-21] MEDS ORDERED: Fentanyl 100 MCG/2 ML VIAL ONE (09:43)
[2020-11-21] MEDS ORDERED: PROPOFOL 200 MG/20 ML VIAL ONE (09:59)
[2020-11-21] MEDS ORDERED: Glycopyrrolate 0.2 MG/ML 5 ML SYRINGE ONE (09:59)
[2020-11-21] MEDS ORDERED: Rocuronium Bromide 10 MG/ML (10ML VIAL) ONE (09:59)
[2020-11-21] MEDS ORDERED: Dexamethasone 20 MG/5 ML VIAL ONE (09:59)
[2020-11-21] MEDS ORDERED: Ondansetron PF 4 MG/2 ML Vial ONE (09:59)
[2020-11-21] MEDS ORDERED: SUGAMMADEX SODIUM 200 MG/2 ML VIAL ONE (11:33)
== END 2020-11-21 13:55 | disposition home or self-care (01) ==
LOC: SDC 06:52
PROVIDERS: ATTEND Neurological Surgery
PROC: 0SG3071 Fusion of Lumbosacral Joint with Autologous Tissue Substitute, Posterior Approach, Posterior Column, Open Approach (ICD-10-PCS; principal; 2020-11-21)
PROC: 0ST40ZZ Resection of Lumbosacral Disc, Open Approach (ICD-10-PCS; 2020-11-21)
DX: M48.061 Spinal stenosis, lumbar region without neurogenic claudication (principal); M54.16 Radiculopathy, lumbar region; M19.90 Unspecified osteoarthritis, unspecified site; E11.9 Type 2 diabetes mellitus without complications; E78.00 Pure hypercholesterolemia, unspecified; G43.909 Migraine, unspecified, not intractable, without status migrainosus; I11.9 Hypertensive heart disease without heart failure; Z79.4 Long term (current) use of insulin; Z79.82 Long term (current) use of aspirin; Z79.899 Other long term (current) drug therapy; Z88.0 Allergy status to penicillin; Z88.2 Allergy status to sulfonamides; Z91.041 Radiographic dye allergy status; Z95.0 Presence of cardiac pacemaker; Z98.1 Arthrodesis status
CPT/HCPCS: 20930; 20936; 22612; 22830; 22842; 76000; 82962; C1713 ×3; C1768; 36416; J0171; J1100; J1956; J2250; J2405; J2704; J3010; J3490; S0020

== ENCOUNTER 2021-01-05 14:19 | Outpatient (CLI) | payer MEDICARE, BC | END 2021-01-05 14:20 | disposition home or self-care (01) | LOC: BICCT 14:19 | PROVIDERS: ATTEND Neurological Surgery | DX: M54.16 Radiculopathy, lumbar region (principal); M48.061 Spinal stenosis, lumbar region without neurogenic claudication; M48.07 Spinal stenosis, lumbosacral region; R93.7 Abnormal findings on diagnostic imaging of other parts of musculoskeletal system; Z98.890 Other specified postprocedural states | CPT/HCPCS: 72131 ==

== ENCOUNTER 2021-03-04 06:56 | Day surgery (SDC) | payer MEDICARE, BC ==
[2021-03-03 11:41] VITALS: BMI 37.6
[2021-03-04] MEDS ORDERED: Sodium Bicarbonate 2.5 MEQ/5 ML VIAL ONE (07:30)
[2021-03-04] MEDS ORDERED: Lidocaine 1% PF 5 ML VIAL ONE (07:30)
[2021-03-04 07:38] VITALS: TEMP 98.2
[2021-03-04 10:05] VITALS: BP 174/64
== END 2021-03-04 10:15 | disposition home or self-care (01) ==
LOC: RAD 06:56
PROVIDERS: ATTEND Neurological Surgery
DX: M43.16 Spondylolisthesis, lumbar region (principal); M43.17 Spondylolisthesis, lumbosacral region; M48.062 Spinal stenosis, lumbar region with neurogenic claudication; M54.16 Radiculopathy, lumbar region; I70.0 Atherosclerosis of aorta; K55.1 Chronic vascular disorders of intestine; M19.90 Unspecified osteoarthritis, unspecified site; E11.9 Type 2 diabetes mellitus without complications; E78.00 Pure hypercholesterolemia, unspecified; G43.909 Migraine, unspecified, not intractable, without status migrainosus; I11.9 Hypertensive heart disease without heart failure; Z79.4 Long term (current) use of insulin; Z79.899 Other long term (current) drug therapy; Z88.0 Allergy status to penicillin; Z88.1 Allergy status to other antibiotic agents; Z88.2 Allergy status to sulfonamides; Z91.041 Radiographic dye allergy status; Z98.1 Arthrodesis status
CPT/HCPCS: 62304; 72132; 76380; 77002

== ENCOUNTER 2021-03-26 09:32 | Outpatient (CLI) | payer MEDICARE, BC | END 2021-03-26 09:33 | disposition home or self-care (01) | LOC: BICRAD 09:32 | PROVIDERS: ATTEND Internal Medicine Rheumatology | DX: R76.12 Nonspecific reaction to cell mediated immunity measurement of gamma interferon antigen response without active tuberculosis (principal) | CPT/HCPCS: 71046 ==

== ENCOUNTER 2021-11-18 11:30 | Emergency (ER) | payer MEDICARE, BC ==
[2021-11-18 12:48] LABS: #Eosinphils 0.1 thou/uL (0.0-0.7); #Lymphocytes 1.5 thou/uL (1.20-3.40); #Monocytes 2.2 thou/uL (0.11-0.59); #Neutrophils 12.2 thou/uL (1.40-6.50); %Basophils 0.1 % (0.0-1.0); %Eosinophils 0.6 % (0.0-10.0); %Lymphocytes 9.1 % (21.0-51.0); %Monocytes 13.6 % (0.0-10.0); %Neutrophils 76.6 % (42.0-75.0); Hemoglobin 10.3 g/dL (12.0-16.0); Mean Corpuscular HGB CONC 31.6 g/dL (32.0-36.0); Mean Corpuscular Hemoglobin 27.6 pg (27.0-31.0); Mean Corpuscular Volume 87.5 fL (78.0-98.0); Mean Platelet Volume 9.9 fL (7.4-10.4); Platelet Count 150 thou/uL (130-400); RBC Distribution Width 14.2 % (11.5-14.5); Red Blood Cell (RBC) Count 3.71 mill/uL (4.20-5.40)
[2021-11-18 13:16] LABS: ALT (SGPT) 15 U/L (8-55); AST (SGOT) 25 U/L (5-34); Albumin 3.3 g/dL (3.4-4.8); Alkaline Phosphatase 108 U/L (40-110); Anion Gap 12 mmol/L (10-20); BUN (Urea Nitrogen) 18 mg/dL (9.8-20.1); Bilirubin, Total 0.7 mg/dL (0.2-1.2); Calc. Creatinine Clearance 0 mL/min (70-130); Calcium 8.6 mg/dL (7.8-10.44); Carbon Dioxide 25 mmol/L (23-31); Chloride 95 mmol/L (98-107); Globulin 2.7 g/dL (2.4-3.5); Glucose 372 mg/dL (83-110); Potassium 4.2 mmol/L (3.5-5.1); Sodium 128 mmol/L (136-145)
[2021-11-18] MEDS ORDERED: Meclizine HCl 25 MG TAB ONE (15:47)
[2021-11-18 16:05] LABS: Bilirubin Negative (Negative); Blood, Urine Trace (Negative); Clarity Turbid (Clear); Glucose, Urine (Dipstick) Greater than 1000 mg/dL (Negative); Ketone, Urine Negative (Negative); Leukocyte 500 Leu/uL (Negative); Nitrite Negative (Negative); Protein, Urine (Dipstick) 70 mg/dL (Neg-Trace); Specific Gravity, Urine 1.019 (1.002-1.036); Urobilinogen Normal mg/dL (Less than 2)
[2021-11-18 16:14] LABS: Bacteria/HPF 4+ HPF (None Seen)
== END 2021-11-18 17:00 | disposition home or self-care (01) ==
LOC: ERS 11:30
DX: H81.13 Benign paroxysmal vertigo, bilateral (principal); E87.1 Hypo-osmolality and hyponatremia; N39.0 Urinary tract infection, site not specified; I44.7 Left bundle-branch block, unspecified; I11.0 Hypertensive heart disease with heart failure; I50.9 Heart failure, unspecified; E78.5 Hyperlipidemia, unspecified; I25.10 Atherosclerotic heart disease of native coronary artery without angina pectoris; Z95.0 Presence of cardiac pacemaker
CPT/HCPCS: 36415; 80053; 81003; 81015; 82550; 84484; 85025; 87077; 87086; 87186; 93005

== ENCOUNTER 2021-11-25 10:39 | Emergency (ER) | payer MEDICARE, BC ==
[2021-11-25 11:18] LABS: #Basophils 0.1 thou/uL (0.0-0.2); #Eosinphils 0.2 thou/uL (0.0-0.7); #Lymphocytes 1.8 thou/uL (1.20-3.40); #Neutrophils 7.9 thou/uL (1.40-6.50); %Basophils 0.6 % (0.0-1.0); %Eosinophils 1.8 % (0.0-10.0); %Lymphocytes 16.3 % (21.0-51.0); %Monocytes 8.7 % (0.0-10.0); %Neutrophils 72.6 % (42.0-75.0); Hemoglobin 11.4 g/dL (12.0-16.0); Mean Corpuscular HGB CONC 32.8 g/dL (32.0-36.0); Mean Corpuscular Hemoglobin 28.3 pg (27.0-31.0); Mean Platelet Volume 8.2 fL (7.4-10.4); Platelet Count 288 thou/uL (130-400); RBC Distribution Width 13.9 % (11.5-14.5); Red Blood Cell (RBC) Count 4.03 mill/uL (4.20-5.40); White Blood Cell (WBC) Count 10.9 thou/uL (4.8-10.8)
[2021-11-25 11:33] LABS: ALT (SGPT) 22 U/L (8-55); AST (SGOT) 19 U/L (5-34); Albumin 3.3 g/dL (3.4-4.8); Alkaline Phosphatase 117 U/L (40-110); Anion Gap 13 mmol/L (10-20); BUN (Urea Nitrogen) 11 mg/dL (9.8-20.1); Bilirubin, Total 0.5 mg/dL (0.2-1.2); Calc. Creatinine Clearance 0 mL/min (70-130); Calcium 8.6 mg/dL (7.8-10.44); Carbon Dioxide 23 mmol/L (23-31); Chloride 101 mmol/L (98-107); Globulin 2.9 g/dL (2.4-3.5); Glucose 303 mg/dL (83-110); Potassium 3.7 mmol/L (3.5-5.1); Protein, Total 6.2 g/dL (5.8-8.1); Sodium 133 mmol/L (136-145)
[2021-11-25] MEDS ORDERED: Morphine 2 MG/ML VIAL ONE (11:38)
[2021-11-25] MEDS ORDERED: Famotidine/PF 20 mg/2ml Vial ONE (12:03)
[2021-11-25] MEDS ORDERED: methylPREDNISolone Sod Succ 40 MG VIAL ONE (12:03)
[2021-11-25] MEDS ORDERED: diphenhydrAMINE 50 MG/ML VIAL ONE (12:03)
[2021-11-25 14:56] LABS: Bilirubin Negative (Negative); Blood, Urine Negative (Negative); Clarity Clear (Clear); Glucose, Urine (Dipstick) 200 mg/dL (Negative); Ketone, Urine Negative (Negative); Leukocyte Negative Leu/uL (Negative); Nitrite Negative (Negative); Protein, Urine (Dipstick) Negative (Neg-Trace); Specific Gravity, Urine 1.019 (1.002-1.036); Urobilinogen Normal mg/dL (Less than 2); pH, Urine 6.5 (5.0-9.0)
== END 2021-11-25 14:37 | disposition home or self-care (01) ==
LOC: ERS 10:39
DX: R10.33 Periumbilical pain (principal); R19.7 Diarrhea, unspecified; I25.10 Atherosclerotic heart disease of native coronary artery without angina pectoris; I11.0 Hypertensive heart disease with heart failure; I50.9 Heart failure, unspecified; E78.5 Hyperlipidemia, unspecified
CPT/HCPCS: 74177; 80053; 81003; 83605; 83690; 85025; 94760; J2270; 36415; 96374; 96375; J1200; J2920; S0028

== ENCOUNTER 2021-12-16 12:27 | Outpatient (CLI) | payer MEDICARE, BC | END 2021-12-16 12:28 | disposition home or self-care (01) | LOC: BICULT 12:27 | PROVIDERS: ATTEND Family Medicine | DX: N28.89 Other specified disorders of kidney and ureter (principal) | CPT/HCPCS: 76770 ==

== ENCOUNTER 2021-12-25 12:53 | Outpatient (CLI) | payer MEDICARE, BC | END 2021-12-25 12:54 | disposition home or self-care (01) | LOC: BICCT 12:53 | PROVIDERS: ATTEND Anesthesiology Pain Medicine | DX: S32.009K Unspecified fracture of unspecified lumbar vertebra, subsequent encounter for fracture with nonunion (principal); M47.816 Spondylosis without myelopathy or radiculopathy, lumbar region; M47.817 Spondylosis without myelopathy or radiculopathy, lumbosacral region; M47.815 Spondylosis without myelopathy or radiculopathy, thoracolumbar region; I70.0 Atherosclerosis of aorta; Z98.890 Other specified postprocedural states | CPT/HCPCS: 72110; 72131 ==

== ENCOUNTER 2022-01-11 07:25 | Outpatient (CLI) | payer MEDICARE, BC | END 2022-01-11 07:26 | disposition home or self-care (01) | LOC: BICULT 07:25 | PROVIDERS: ATTEND Internal Medicine Nephrology | DX: N18.30 Chronic kidney disease, stage 3 unspecified (principal); N28.1 Cyst of kidney, acquired | CPT/HCPCS: 76770 ==

== ENCOUNTER 2023-01-31 07:23 | Day surgery (SDC) | payer MEDICARE, BC ==
[2023-01-28 09:26] VITALS: BMI 33.6
[2023-01-31] MEDS ORDERED: Bupivacaine 0.25% HCL 30 ML VIAL ONE (09:58)
[2023-01-31] MEDS ORDERED: EPINEPHrine 1 MG/ML AMP ONE (09:58)
[2023-01-31] MEDS ORDERED: Mineral Oil Sterile 10 ML VIAL ONE (09:58)
[2023-01-31] MEDS ORDERED: Isosulfan Blue 50 MG/5 ML VIAL ONE (10:03)
[2023-01-31] MEDS ORDERED: fentaNYL PF 100 MCG/2 ML SYRINGE ONE (10:37)
[2023-01-31] MEDS ORDERED: Sodium Chloride 0.9% 100 ML ONE (10:47)
[2023-01-31] MEDS ORDERED: CEFAZOLIN 2 GM VIAL ONE (10:47)
[2023-01-31] MEDS ORDERED: Ondansetron PF 4 MG/2 ML Vial ONE (11:04)
[2023-01-31] MEDS ORDERED: Lidocaine 1% PF 5 ML VIAL ONE (11:04)
[2023-01-31] MEDS ORDERED: PROPOFOL 200 MG/20 ML VIAL ONE (11:04)
[2023-01-31] MEDS ORDERED: fentaNYL 50 mcg/mL 1 mL Vial ONE (13:30)
[2023-01-31] MEDS ORDERED: HYDROcodone/Acetaminophen 5/325 mg Tablet ONE (14:56)
== END 2023-01-31 16:02 | disposition home or self-care (01) ==
LOC: NM 07:23
PROVIDERS: ATTEND Plastic Surgery
PROC: 0HR Skin and Breast, Replacement (ICD-10-PCS; principal; 2023-01-31)
PROC: 07B60ZX Excision of Left Axillary Lymphatic, Open Approach, Diagnostic (ICD-10-PCS; 2023-01-31)
DX: C43.62 Malignant melanoma of left upper limb, including shoulder (principal); D22.62 Melanocytic nevi of left upper limb, including shoulder
CPT/HCPCS: 11606; 15100; 38525; 78195; 82962; 97139; A9541; C1713; J3010; Q9968; 36416; 88305; 88307; J0171; J2405; J2704; J3490; S0020

== ENCOUNTER 2023-04-01 07:43 | Outpatient (CLI) | payer MEDICARE, BC ==
[2023-04-01] MEDS ORDERED: Iopamidol 370 76% 100 ML VIAL ONE (15:25)
== END 2023-04-01 07:44 | disposition home or self-care (01) ==
LOC: CT 07:43
PROVIDERS: ATTEND Internal Medicine Nephrology
DX: N28.89 Other specified disorders of kidney and ureter (principal); N28.1 Cyst of kidney, acquired; I70.0 Atherosclerosis of aorta; K55.1 Chronic vascular disorders of intestine; I77.4 Celiac artery compression syndrome; K63.89 Other specified diseases of intestine
CPT/HCPCS: 74178; Q9967

== ENCOUNTER 2023-04-21 10:38 | Outpatient (CLI) | payer MEDICARE, BC | END 2023-04-21 10:39 | disposition home or self-care (01) | LOC: BICULT 10:38 | PROVIDERS: ATTEND Internal Medicine Nephrology | DX: R10.9 Unspecified abdominal pain (principal); N28.1 Cyst of kidney, acquired | CPT/HCPCS: 76770 ==

== ENCOUNTER 2023-07-01 09:03 | Outpatient (CLI) | payer MEDICARE, BC ==
[2023-07-01] MEDS ORDERED: Iopamidol 370 76% 100 ML VIAL ONE (11:31)
[2023-07-01] MEDS ORDERED: GASTROGRAFIN 30 ML BOT ONE (11:31)
== END 2023-07-01 09:04 | disposition home or self-care (01) ==
LOC: CT 09:03
PROVIDERS: ATTEND Internal Medicine Hematology & Oncology
DX: C43.62 Malignant melanoma of left upper limb, including shoulder (principal); I25.9 Chronic ischemic heart disease, unspecified; I70.0 Atherosclerosis of aorta; I70.8 Atherosclerosis of other arteries; I77.1 Stricture of artery; M47.819 Spondylosis without myelopathy or radiculopathy, site unspecified; S22.089D Unspecified fracture of T11-T12 vertebra, subsequent encounter for fracture with routine healing; N28.1 Cyst of kidney, acquired; Z90.710 Acquired absence of both cervix and uterus; Z98.890 Other specified postprocedural states
CPT/HCPCS: 71260; 74177; 82565; Q9963; Q9967

== ENCOUNTER 2023-12-15 13:47 | Outpatient (CLI) | payer MEDICARE, BC | END 2023-12-15 13:48 | disposition home or self-care (01) | LOC: RAD 13:47 | PROVIDERS: ATTEND Internal Medicine Critical Care Medicine | DX: R06.00 Dyspnea, unspecified (principal); I51.7 Cardiomegaly | CPT/HCPCS: 71046 ==

== ENCOUNTER 2024-04-26 06:41 | Day surgery (SDC) | payer MEDICARE, BC ==
[2024-04-18 09:10] VITALS: BMI 30.6
[2024-04-26] MEDS ORDERED: Gentamicin 80 MG/2 ML VIAL ONE (07:35)
[2024-04-26] MEDS ORDERED: Lidocaine 1% MPF 2 ML VIAL ONE (07:35)
[2024-04-26] MEDS ORDERED: CEFAZOLIN 2 GM VIAL ONE (07:35)
[2024-04-26] MEDS ORDERED: Vancomycin (BATCH) 1.5 GM/300 ML BAG ONE (07:35)
[2024-04-26] MEDS ORDERED: Insulin Regular, Human 100 UNIT/ML 10 ML VIAL ONE (08:02)
[2024-04-26] MEDS ORDERED: Propofol 500 MG/50 ML VIAL ONE (09:03)
[2024-04-26] MEDS ORDERED: Ondansetron PF 4 MG/2 ML Vial ONE (09:03)
[2024-04-26] MEDS ORDERED: fentaNYL 50 mcg/mL 1 mL Vial ONE ×2 (09:03→11:00)
[2024-04-26 09:13] LABS: Anion Gap 11 mmol/L (10-20); BUN (Urea Nitrogen) 20 mg/dL (9.8-20.1); Calc. Creatinine Clearance 50 mL/min (70-130); Calcium 8.8 mg/dL (7.8-10.44); Carbon Dioxide 28 mmol/L (23-31); Chloride 102 mmol/L (98-107); Estimated GFR 59; Glucose 241 mg/dL (83-110); Sodium 137 mmol/L (136-145)
[2024-04-26] MEDS ORDERED: Clindamycin/D5W 900 mg/50 ml Premix Bag ONE (09:34)
[2024-04-26] MEDS ORDERED: PHENYLEPHRINE-NS 100 MCG/ML 10 ML SYRINGE ONE (10:18)
[2024-04-26] MEDS ORDERED: cloNIDine 0.1 MG TAB ONE (11:30)
[2024-04-26] MEDS ORDERED: Carvedilol 6.25 MG TAB ONE (11:31)
[2024-04-26] MEDS ORDERED: HYDROcodone/Acetaminophen 5/325 mg Tablet ONE (14:40)
== END 2024-04-26 15:30 | disposition home or self-care (01) ==
LOC: SDC 06:41
PROVIDERS: ATTEND Internal Medicine Cardiovascular Disease
PROC: 0JPT3PZ Removal of Cardiac Rhythm Related Device from Trunk Subcutaneous Tissue and Fascia, Percutaneous Approach (ICD-10-PCS; principal; 2024-04-26)
PROC: 0JH608Z Insertion of Defibrillator Generator into Chest Subcutaneous Tissue and Fascia, Open Approach (ICD-10-PCS; 2024-04-26)
PROC: 0JPT3FZ Removal of Subcutaneous Defibrillator Lead from Trunk Subcutaneous Tissue and Fascia, Percutaneous Approach (ICD-10-PCS; 2024-04-26)
PROC: 0JH63FZ Insertion of Subcutaneous Defibrillator Lead into Chest Subcutaneous Tissue and Fascia, Percutaneous Approach (ICD-10-PCS; 2024-04-26)
DX: T82.111A Breakdown (mechanical) of cardiac pulse generator (battery), initial encounter (principal); I13.0 Hypertensive heart and chronic kidney disease with heart failure and stage 1 through stage 4 chronic kidney disease, or unspecified chronic kidney disease; N18.9 Chronic kidney disease, unspecified; I50.20 Unspecified systolic (congestive) heart failure; E11.22 Type 2 diabetes mellitus with diabetic chronic kidney disease; E78.5 Hyperlipidemia, unspecified; Z91.041 Radiographic dye allergy status; Z88.2 Allergy status to sulfonamides; Z88.8 Allergy status to other drugs, medicaments and biological substances; Z92.89 Personal history of other medical treatment; Z95.810 Presence of automatic (implantable) cardiac defibrillator; Z98.890 Other specified postprocedural states; Z79.01 Long term (current) use of anticoagulants; Z79.899 Other long term (current) drug therapy; Z79.82 Long term (current) use of aspirin; Y83.1 Surgical operation with implant of artificial internal device as the cause of abnormal reaction of the patient, or of later complication, without mention of misadventure at the time of the procedure; Z90.710 Acquired absence of both cervix and uterus
CPT/HCPCS: 33264; 80048; 82962; 85610; C1763; C1882; J1580; J1815; J2405; J2704; J3010; J3370; J3490; 36415; 36416; J1642

== ENCOUNTER 2024-05-10 12:38 | Outpatient (CLI) | payer MEDICARE, BC | END 2024-05-10 12:39 | disposition home or self-care (01) | LOC: CT 12:38 | PROVIDERS: ATTEND Otolaryngology Plastic Surgery within the Head & Neck | DX: R51.9 Headache, unspecified (principal); J32.0 Chronic maxillary sinusitis; Z90.89 Acquired absence of other organs ==

== ENCOUNTER 2024-06-15 18:16 | Inpatient (IN) | payer MEDICARE, BC ==
[2024-06-15 19:47] LABS: #Basophils 0.05 10x3/uL (0.0-0.2); %Basophils 0.6 % (0.0-1.0); %Eosinophils 1.4 % (0.0-10.0); %Lymphocytes 18.8 % (21.0-51.0); %Monocytes 11.4 % (0.0-10.0); Hematocrit 32.5 % (36.0-47.0); Hemoglobin 10.2 g/dL (12.0-16.0); Mean Corpuscular HGB CONC 31.4 g/dL (32.0-36.0); Mean Corpuscular Volume 92.3 fL (78.0-98.0); Mean Platelet Volume 11.1 fL (7.4-10.4); Platelet Count 192 10x3/uL (130-400); RBC Distribution Width 13.8 % (11.5-14.5); Red Blood Cell (RBC) Count 3.52 mill/uL (4.20-5.40)
[2024-06-15 20:02] LABS: Bilirubin Negative (Negative); Blood, Urine Negative (Negative); CAUTI Indications for Culture Acute Hematuria; Clarity Clear (Clear); Glucose, Urine (Dipstick) 500 mg/dL (Negative); Ketone, Urine Negative (Negative); Leukocyte Negative Leu/uL (Negative); Nitrite Negative (Negative); Protein, Urine (Dipstick) 10 mg/dL (Neg-Trace); RBC/HPF 0-3 HPF (0-3); Specific Gravity, Urine 1.012 (1.002-1.036); Urobilinogen Normal mg/dL (Less than 2); WBC/HPF 0-3 HPF (0-3)
[2024-06-15 20:05] LABS: ALT (SGPT) 48 U/L (8-55); AST (SGOT) 39 U/L (5-34); Albumin 3.1 g/dL (3.4-4.8); Alkaline Phosphatase 119 U/L (40-110); Anion Gap 14 mmol/L (10-20); BUN (Urea Nitrogen) 23 mg/dL (9.8-20.1); Bilirubin, Total 0.4 mg/dL (0.2-1.2); Calc. Creatinine Clearance 0 mL/min (70-130); Calcium 8.3 mg/dL (7.8-10.44); Carbon Dioxide 22 mmol/L (23-31); Chloride 104 mmol/L (98-107); Estimated GFR 50; Globulin 3.2 g/dL (2.4-3.5); Glucose 293 mg/dL (83-110); Potassium 4.4 mmol/L (3.5-5.1); Protein, Total 6.3 g/dL (5.8-8.1); Sodium 136 mmol/L (136-145)
[2024-06-15 20:06] LABS: Bacteria/HPF 1+ HPF (None Seen); Urine Culture Reflex No No
[2024-06-15] MEDS ORDERED: Aspirin Chewable 81 MG TAB ONE (21:00)
[2024-06-15] MEDS ORDERED: diphenhydrAMINE 50 MG/ML VIAL ONE (21:00)
[2024-06-15] MEDS ORDERED: methylPREDNISolone Sod Succ/PF 125 MG/2 ML VIAL ONE (21:00)
[2024-06-15] MEDS ORDERED: Famotidine/PF 20 mg/2ml Vial ONE (21:00)
[2024-06-15] MEDS ORDERED: Labetalol HCl 100 MG/20 ML VIAL ONE (21:13)
[2024-06-15] MEDS ORDERED: Furosemide 40 MG (4 mL) VIAL ONE (21:16)
[2024-06-15 23:31] LABS: Troponin I 0.063 ng/mL (< 0.028)
[2024-06-15] MEDS ORDERED: hydrALAZINE 20 MG/ML VIAL ONE (23:45)
[2024-06-16] MEDS ORDERED: Nitroglycerin 50 MG/250 ML BOT 250 ML ONE (00:02)
[2024-06-16] MEDS ORDERED: Glucagon 1 MG/ML KIT IM PRN (00:58)
[2024-06-16] MEDS ORDERED: Dextrose 50% Abboject 50 ML SYRINGE SLOW IVP PRN (00:58)
[2024-06-16] MEDS ORDERED: Dextrose 5% in Water 1,000 ML IV PRN (00:58)
[2024-06-16] MEDS ORDERED: Ondansetron ODT 4 MG TAB PO PRN (00:59)
[2024-06-16] MEDS ORDERED: Acetaminophen 650 MG Suppository PR PRN (00:59)
[2024-06-16] MEDS ORDERED: Ondansetron PF 4 MG/2 ML Vial IVP PRN (00:59)
[2024-06-16 03:19] LABS: ALT (SGPT) 45 U/L (8-55); AST (SGOT) 32 U/L (5-34); Albumin 3.2 g/dL (3.4-4.8); Alkaline Phosphatase 122 U/L (40-110); Anion Gap 17 mmol/L (10-20); BUN (Urea Nitrogen) 23 mg/dL (9.8-20.1); Bilirubin, Total 0.5 mg/dL (0.2-1.2); Calc. Creatinine Clearance 0 mL/min (70-130); Calcium 8.8 mg/dL (7.8-10.44); Carbon Dioxide 23 mmol/L (23-31); Chloride 96 mmol/L (98-107); Estimated GFR 50; Globulin 3.4 g/dL (2.4-3.5); Glucose 375 mg/dL (83-110); Potassium 4.3 mmol/L (3.5-5.1); Protein, Total 6.6 g/dL (5.8-8.1); Sodium 132 mmol/L (136-145)
[2024-06-16 03:25] LABS: Troponin I 0.073 ng/mL (< 0.028)
[2024-06-16 03:33] LABS: #Basophils 0.03 10x3/uL (0.0-0.2); #Eosinophils Less than 0.03 10x3/uL (0.0-0.7); %Basophils 0.4 % (0.0-1.0); %Lymphocytes 8.4 % (21.0-51.0); %Monocytes 1.3 % (0.0-10.0); %Neutrophils 89.5 % (42.0-75.0); Hematocrit 33.6 % (36.0-47.0); Hemoglobin 10.8 g/dL (12.0-16.0); Mean Corpuscular HGB CONC 32.1 g/dL (32.0-36.0); Mean Corpuscular Hemoglobin 28.8 pg (27.0-31.0); Mean Corpuscular Volume 89.6 fL (78.0-98.0); Mean Platelet Volume 11.1 fL (7.4-10.4); Platelet Count 172 10x3/uL (130-400); RBC Distribution Width 13.7 % (11.5-14.5); Red Blood Cell (RBC) Count 3.75 mill/uL (4.20-5.40)
[2024-06-16] MEDS: Labetalol HCl 100 MG/20 ML VIAL SLOW IVP SCH (04:22)
[2024-06-16] MEDS: Acetaminophen 325 MG TAB PO SCH (04:23)
[2024-06-16] MEDS ORDERED: hydrALAZINE 20 MG/ML VIAL SLOW IVP PRN (04:39)
[2024-06-16 04:40] VITALS: BMI 29.0
[2024-06-16 05:51] LABS: Troponin I 0.083 ng/mL (< 0.028)
[2024-06-16] MEDS: Labetalol HCl 100 MG/20 ML VIAL SLOW IVP PRN (06:08)
[2024-06-16] MEDS: Furosemide 20 MG (2 mL) VIAL SLOW IVP SCH (06:09)
[2024-06-16] MEDS: Insulin Lispro 100 UNIT/ML 10 ML VIAL SC PRN ×2 (06:10→16:22)
[2024-06-16] MEDS: Mometasone 200 MCG/Formoterol 5 MCG 120 PUFF INHALER INH SCH (07:11)
[2024-06-16] MEDS: hydrALAZINE 25 MG TAB PO SCH ×3 (07:43→09:28)
[2024-06-16] MEDS: cloNIDine 0.1 MG TAB PO SCH ×3 (07:44→13:35)
[2024-06-16] MEDS: Famotidine 20 MG TAB PO SCH (07:44)
[2024-06-16] MEDS: Carvedilol 25 MG TAB PO SCH (07:45)
[2024-06-16] MEDS: Nitroglycerin 50 MG/250 ML BOT 250 ML IVPB SCH (08:04)
[2024-06-16] MEDS ORDERED: Famotidine/PF 20 mg/2ml Vial SLOW IVP SCH (09:00)
[2024-06-16] MEDS: Enoxaparin 40 MG (0.4 mL) SYRINGE SC SCH (09:22)
[2024-06-16] MEDS: Torsemide 20 MG TAB PO SCH (09:23)
[2024-06-16] MEDS: Spironolactone 25 MG TAB PO SCH (09:23)
[2024-06-16] MEDS: cloNIDine 0.2 MG TAB PO SCH (09:25)
[2024-06-16] MEDS: Pantoprazole DR 40 MG TAB PO SCH (09:28)
[2024-06-16] MEDS ORDERED: Insulin Regular, Human 100 UNIT/ML 10 ML VIAL SC PRN (13:00)
[2024-06-16 13:49] VITALS: BMI 29.0
[2024-06-16] MEDS: Losartan 25 MG TAB PO SCH (16:17)
[2024-06-16] MEDS: NIFEdipine XL 60 MG ER.TAB PO SCH (18:07)
[2024-06-16] MEDS: niCARdipine 25 MG in Sodium Chloride 0.9% 250 ML 250 ML IVPB SCH (19:49)
[2024-06-16] MEDS: HumuLIN 70/30 100 Unit/ml 10 ml Vial SC SCH (20:32)
[2024-06-16] MEDS: Atorvastatin Calcium 20 MG TAB PO SCH (20:36)
[2024-06-16] MEDS: rOPINIRole HCl 1 MG TAB PO SCH (20:39)
[2024-06-17] MEDS: Losartan 25 MG TAB PO SCH (07:48)
[2024-06-17] MEDS: NIFEdipine XL 60 MG ER.TAB PO SCH (07:49)
[2024-06-17] MEDS: Spironolactone 25 MG TAB PO SCH (07:49)
[2024-06-17 08:34] LABS: #Basophils 0.04 10x3/uL (0.0-0.2); %Basophils 0.3 % (0.0-1.0); %Eosinophils 0.2 % (0.0-10.0); %Lymphocytes 19.1 % (21.0-51.0); %Monocytes 9.4 % (0.0-10.0); %Neutrophils 70.5 % (42.0-75.0); Hematocrit 33.6 % (36.0-47.0); Hemoglobin 11.2 g/dL (12.0-16.0); Mean Corpuscular HGB CONC 33.3 g/dL (32.0-36.0); Mean Corpuscular Hemoglobin 29.7 pg (27.0-31.0); Mean Corpuscular Volume 89.1 fL (78.0-98.0); Mean Platelet Volume 10.8 fL (7.4-10.4); Platelet Count 252 10x3/uL (130-400); RBC Distribution Width 13.9 % (11.5-14.5); Red Blood Cell (RBC) Count 3.77 mill/uL (4.20-5.40)
[2024-06-17 08:48] LABS: Hemoglobin A1c 8.4 % (4.0-6.0)
[2024-06-17 08:49] LABS: Anion Gap 14 mmol/L (10-20); BUN (Urea Nitrogen) 34 mg/dL (9.8-20.1); Calc. Creatinine Clearance 36 mL/min (70-130); Calcium 9.1 mg/dL (7.8-10.44); Carbon Dioxide 27 mmol/L (23-31); Chloride 94 mmol/L (98-107); Estimated GFR 42; Glucose 227 mg/dL (83-110); Potassium 3.3 mmol/L (3.5-5.1); Sodium 132 mmol/L (136-145)
[2024-06-17] MEDS: guaiFENesin ER 600 MG TAB PO PRN (11:45)
[2024-06-17] MEDS: Electrolyte Replacement Protocol 1 EACH FS ONE (11:45)
[2024-06-17] MEDS: Polyethylene Glycol 3350 17 GM Packet PO SCH (11:45)
[2024-06-17] MEDS ORDERED: Electrolyte Replacement Protocol 1 EACH FS PRN (12:01)
[2024-06-17 14:20] LABS: Magnesium 1.8 mg/dL (1.6-2.6)
[2024-06-17] MEDS: Magnesium 2 GM/50 ML(in water) 2 GM in Premix 1 BAG IVPB SCH (14:59)
[2024-06-17] MEDS: Potassium Chloride 20 MEQ TAB PO SCH (14:59)
[2024-06-17] MEDS: Temazepam 15 MG CAP PO SCH (21:50)
[2024-06-17] MEDS: Senokot S 8.6-50 MG TAB PO SCH (21:52)
[2024-06-17] MEDS: Insulin Lispro 100 UNIT/ML 10 ML VIAL SC PRN (21:52)
[2024-06-18] MEDS: Polyethylene Glycol 3350 17 GM Packet PO SCH (09:40)
[2024-06-18 16:25] VITALS: BP 138/57; TEMP 98
[2024-06-19] MEDS ORDERED: Spironolactone 25 MG TAB PO SCH (08:00)
[2024-06-19] MEDS ORDERED: Potassium Chloride 10 MEQ TAB PO SCH (08:00)
[2024-06-19] MEDS ORDERED: NIFEdipine XL 30 MG ER.TAB PO SCH (09:00)
== END 2024-06-18 18:31 | disposition home or self-care (01) | DRG 280 ==
LOC: ERS 18:16 → CCU 06-16 00:53 → PCU 06-17 19:37
PROVIDERS: ADMIT Student in an Organized Health Care Education/Training Program; ATTEND Family Medicine
DX: I13.0 Hypertensive heart and chronic kidney disease with heart failure and stage 1 through stage 4 chronic kidney disease, or unspecified chronic kidney disease (principal); I50.23 Acute on chronic systolic (congestive) heart failure; I21.A1 Myocardial infarction type 2; I16.1 Hypertensive emergency; E87.1 Hypo-osmolality and hyponatremia; I42.8 Other cardiomyopathies; E11.22 Type 2 diabetes mellitus with diabetic chronic kidney disease; N18.9 Chronic kidney disease, unspecified; E78.5 Hyperlipidemia, unspecified; I25.10 Atherosclerotic heart disease of native coronary artery without angina pectoris; K21.9 Gastro-esophageal reflux disease without esophagitis; G25.81 Restless legs syndrome; Z98.890 Other specified postprocedural states; Z90.710 Acquired absence of both cervix and uterus; Z79.899 Other long term (current) drug therapy; Z88.1 Allergy status to other antibiotic agents; Z95.0 Presence of cardiac pacemaker
CPT/HCPCS: 36415; 36416; 70450; 71045; 71275; 80048; 80053; 81001; 83036; 83735; 83880; 84484; 85025; 85379; 93005; 93798; 94760; J0360; J1200; J1650; J1815; J1940; J2919; J3475; J3490; J7050

== ENCOUNTER 2024-06-26 13:59 | Outpatient (CLI) | payer MEDICARE, BC | END 2024-06-26 14:00 | disposition home or self-care (01) | LOC: RAD 13:59 | PROVIDERS: ATTEND Internal Medicine Critical Care Medicine | DX: R06.00 Dyspnea, unspecified (principal); I70.90 Unspecified atherosclerosis; Z95.810 Presence of automatic (implantable) cardiac defibrillator; Z98.890 Other specified postprocedural states | CPT/HCPCS: 71046 ==

== ENCOUNTER 2025-02-14 15:36 | Outpatient (CLI) | payer MEDICARE | END 2025-02-14 15:37 | disposition home or self-care (01) | LOC: BICRAD 15:36 | PROVIDERS: ATTEND Nurse Practitioner Family | DX: S89.91XA Unspecified injury of right lower leg, initial encounter (principal) ==